=== PATIENT | male | born 1990 | race Two or more races ===

== ENCOUNTER 2022-03-27 21:00 | Emergency (ER) | payer SELFPAY ==
[2022-03-27] MEDS ORDERED: Erythromycin Base 0.5% Ophth Oint 1 GM Tube EYEBOTH ONE (21:17)
== END 2022-03-27 21:45 | disposition home or self-care (01) ==
LOC: MW.ED 21:00
DX: H16.133 Photokeratitis, bilateral (principal)
CPT/HCPCS: 99283; A9270